=== PATIENT | female | born 1960 | race Caucasian/White ===

== ENCOUNTER 2017-04-20 13:11 | Emergency (ER) | payer BC ==
[2017-04-20 13:54] VITALS: BP 154/96
--- NOTE | 2017-04-20 14:33 | UC ---
Elbow Pain - HPI Summary HPI Summary: RIGHT ELBOW PAIN X 2 HRS INJURY TO THE RIGHT ELBOW A BUDGIE CORD COILED BACK AND HIT HER ON THE RIGHT ELBOW + PAIN OF THE ELBOW, NUMBNESS OF THE RIGHT HAND - History of Current Complaint Chief Complaint: UCUpperExtremity Stated Complaint: RIGHT ELBOW INJURY Time Seen by Provider: 04/20/17 14:24 Hx Obtained From: Patient Onset/Duration: Hours - 2, Traumatic, Still Present Severity Initially: Moderate Severity Currently: Moderate Location Of Pain: Is Discrete @ - RIGHT ELBOW Character: Aching, Throbbing Aggravating Factor(s): Movement Alleviating Factor(s): Rest, Ice Associated Signs And Symptoms: Positive: Weakness, Numbness/Tingling - RIGHT HAND. Negative: Swelling, Redness, Bruising, Fever - Allergies/Home Medications Allergies/Adverse Reactions: Allergies Allergy/AdvReac Type Severity Reaction Status Date / Time Amoxicillin [From Augmentin] Allergy Intermediate Rash Verified 04/20/17 13:46 Clavulanic Acid Allergy Intermediate Rash Verified 04/20/17 13:46 [From Augmentin] Erythromycin Allergy Intermediate Rash Verified 04/20/17 13:46 Home Medications: Home Medications NK [No Home Medications Reported] 04/20/17 [History Confirmed 04/20/17] PMH/Surg Hx/FS Hx/Imm Hx Previously Healthy: Yes - Surgical History Surgical History: Yes Surgery Procedure, Year, and Place: HYSTERECTOMY. KNEE AND SHOULDER SURGERY, - Family History Known Family History: Negative: Diabetes - Social History Alcohol Use: None Substance Use Type: None Smoking Status (MU): Never Smoked Tobacco Household Exposure Type: Cigarettes Review of Systems Constitutional: Negative Skin: Negative Eyes: Negative ENT: Negative Respiratory: Negative Cardiovascular: Negative Gastrointestinal: Negative All Other Systems Reviewed And Are Negative: Yes Physical Exam Triage Information Reviewed: Yes Appearance: Well-Appearing, No Pain Distress, Well-Nourished Vital Signs: Initial Vital Signs Temp 98.1 F 04/20/17 13:47 Pulse 75 04/20/17 13:47 Resp 16 04/20/17 13:47 BP 154/96 04/20/17 13:47 Pulse Ox 100 04/20/17 13:47 Vital Signs Reviewed: Yes Eyes: Positive: Conjunctiva Clear ENT: Positive: Normal ENT inspection, Hearing grossly normal, Pharynx normal Neck: Positive: Supple, Nontender, No Lymphadenopathy Respiratory: Positive: Chest non-tender, Lungs clear, Normal breath sounds Cardiovascular: Positive: RRR, No Murmur, Pulses Normal Musculoskeletal: Positive: Other: - RIGHT ELBOW : NO SWELLING, MILD TENDERNESS, GOOD ROM , LIMITED STRENGTH Elbow Pain Course/Dx - Differential Dx/Diagnosis Provider Diagnoses: CONTUSION RIGHT ELBOW Discharge - Discharge Plan Condition: Stable Disposition: HOME Patient Education Materials: Contusion in Adults (ED) Referrals: Nona Magana NP [Primary Care Provider] - 7 Days Additional Instructions: CONTUSION OF THE RIGHT ELBOW , CONTUSION OF THE NERVE IN YOUR ELBOW CAUSING NUMBNESS OF YOU FINGERS CONT. WITH REST , ICE, ARM SLING, IBUPROFEN NEEDED FOR PAIN FOLLOW UP WITH YOUR PCP IF NOT BETTER IN 7 DAYS
== END 2017-04-20 14:39 | disposition home or self-care (01) ==
LOC: UCCORT 13:11
DX: S50.01XA Contusion of right elbow, initial encounter (principal); W22.8XXA Striking against or struck by other objects, initial encounter; Y93.9 Activity, unspecified; Y92.9 Unspecified place or not applicable; Z88.1 Allergy status to other antibiotic agents; Z90.710 Acquired absence of both cervix and uterus; Z77.22 Contact with and (suspected) exposure to environmental tobacco smoke (acute) (chronic)
CPT/HCPCS: 99212; G0463

== ENCOUNTER 2018-12-27 16:54 | Emergency (ER) | payer BC ==
[2018-12-27 17:34] VITALS: BP 147/98
--- NOTE | 2018-12-27 17:56 | UC ---
Throat Pain/Nasal Sebastian HPI - HPI Summary HPI Summary: 58 yo female with sore throat x 5 days no f/c no n/v no URI symptoms + recent exposure to strep - History of Current Complaint Chief Complaint: UCGeneralIllness Stated Complaint: SORE THROAT, EARS, HEADACHE Time Seen by Provider: 12/27/18 17:26 Hx Obtained From: Patient Onset/Duration: Sudden Onset Severity: Moderate Pain Intensity: 5 Pain Scale Used: 0-10 Numeric Cough: None Associated Signs & Symptoms: Negative: FB Sensation, Drooling, Wheezing, Hoarseness, Sinus Discomfort, Nasal Discharge, Fever, Vomiting, Rash - Epiglottits Risk Factors Epiglottis Risk Factors: Negative - Allergies/Home Medications Allergies/Adverse Reactions: Allergies Allergy/AdvReac Type Severity Reaction Status Date / Time amoxicillin Allergy Rash Verified 12/27/18 17:35 clavulanic acid Allergy Rash Verified 12/27/18 17:35 [From Augmentin] erythromycin base Allergy Rash Verified 12/27/18 17:35 [From Erythrocin] Home Medications: Home Medications Acetaminophen [Tylenol Extra Strength] 500 mg PO DAILY 12/27/18 [History Confirmed 12/27/18] PMH/Surg Hx/FS Hx/Imm Hx Previously Healthy: Yes - Surgical History Surgical History: Yes Surgery Procedure, Year, and Place: HYSTERECTOMY. KNEE AND SHOULDER SURGERY, - Family History Known Family History: Positive: Hypertension Negative: Diabetes - Social History Alcohol Use: None Substance Use Type: None Smoking Status (MU): Never Smoked Tobacco Household Exposure Type: Cigarettes Review of Systems All Other Systems Reviewed And Are Negative: Yes Constitutional: Positive: Negative Skin: Positive: Negative Eyes: Positive: Negative ENT: Positive: Sore Throat Respiratory: Positive: Negative Cardiovascular: Positive: Negative Gastrointestinal: Positive: Negative Genitourinary: Positive: Negative Motor: Positive: Negative Neurovascular: Positive: Negative Musculoskeletal: Positive: Negative Neurological: Positive: Negative Psychological: Positive: Negative Physical Exam Triage Information Reviewed: Yes Appearance: Well-Appearing, No Pain Distress, Well-Nourished Vital Signs: Initial Vital Signs Temp 98.2 F 12/27/18 17:29 Pulse 83 12/27/18 17:29 Resp 16 12/27/18 17:29 BP 147/98 12/27/18 17:29 Pulse Ox 100 12/27/18 17:29 Vital Signs Reviewed: Yes Eyes: Positive: Conjunctiva Clear ENT: Positive: Hearing grossly normal, Pharyngeal erythema, TMs normal, Tonsillar swelling, Uvula midline. Negative: Nasal congestion, Nasal drainage, Tonsillar exudate, Trismus, Muffled voice, Hoarse voice, Dental tenderness, Sinus tenderness Neck: Positive: Supple, Enlarged Nodes @ - tender ant cerv nodes Respiratory: Positive: Lungs clear, Normal breath sounds, No respiratory distress, No accessory muscle use Cardiovascular: Positive: RRR, No Murmur Neurological: Positive: Alert Psychological Exam: Normal Skin Exam: Normal Throat Pain/Nasal Course/Dx - Course Course Of Treatment: strep (-) - Differential Dx/Diagnosis Provider Diagnosis: Pharyngitis, Exposure to strep throat Discharge - Sign-Out/Discharge Documenting (check all that apply): Patient Departure All imaging exams completed and their final reports reviewed: No Studies - Discharge Plan Condition: Stable Disposition: HOME Prescriptions: Cephalexin CAP* [Keflex CAP*] 500 mg PO BID 10 Days #20 cap Patient Education Materials: Pharyngitis (ED) Referrals: Nona Magana NP [Primary Care Provider] - 4 Days (if not better) - Billing Disposition and Condition Condition: STABLE Disposition: Home
[2018-12-27] MEDS ORDERED: Cephalexin CAP* 500 MG PO ONE (18:01)
== END 2018-12-27 18:06 | disposition home or self-care (01) ==
LOC: UCCORT 16:54
DX: J02.9 Acute pharyngitis, unspecified (principal); Z20.818 Contact with and (suspected) exposure to other bacterial communicable diseases; Z88.0 Allergy status to penicillin; Z88.1 Allergy status to other antibiotic agents
CPT/HCPCS: 87651; 99213; A9270-GY; G0463